=== PATIENT | female | born 1955 | race Caucasian/White ===

== ENCOUNTER 2016-12-10 09:17 | Day surgery (SDC) | payer OTHER ==
[2016-12-09 14:33] VITALS: BMI 26.9
[2016-12-10] MEDS ORDERED: PROPOFOL 20 ML ONE (09:32)
[2016-12-10 10:45] VITALS: TEMP 98
[2016-12-10 11:10] VITALS: PULSE 61
[2016-12-10 12:11] VITALS: BP 144/71
--- NOTE | 2016-12-11 12:37 | PATH ---
Surgical Pathology Report Patient Name: TABATHA GONSALES [facility]. Rec. #: [id number] /Age/Gender: 1955 (Age: 61) / F Account: [id number] Location: [facility]-ENDOSCOPY Taken: 12/10/2016 Received: 12/10/2016 Reported: 12/11/2016 Physicians: Taye Platt D.O. Specimen(s) Received A: BX DUODENUM B: BX ANTRUM Clinical History Abdominal pain, nausea, abnormal tests upper GI scan Final Diagnosis A. DUODENUM, BIOPSY: DUODENAL MUCOSA WITH NO PATHOLOGIC CHANGES. NO HISTOLOGIC EVIDENCE OF GLUTEN SENSITIVE ENTEROPATHY (CELIAC SPRUE) IDENTIFIED. B. STOMACH, ANTRUM AND BODY, BIOPSY: FOCAL MILD CHRONIC GASTRITIS. IMMUNOSTAIN FOR H. PYLORI IS NEGATIVE. Electronically Signed Grady Tapia M.D. Gross Description A. Received in formalin, labeled "biopsy duodenum" are 3 sabillon, irregular portions of soft tissue averaging 0.2 cm. in greatest dimension. The specimens are submitted in toto in one cassette. B. Received in formalin, labeled "biopsy antrum and body" are 3 sabillon, irregular portions of soft tissue averaging 0.2 cm. in greatest dimension. The specimens are submitted in toto in one cassette. 12/10/201612/10/2016
== END 2016-12-10 12:11 | disposition home or self-care (01) ==
LOC: JASU-ENDO 09:17
PROVIDERS: ATTEND Internal Medicine Gastroenterology
PROC: 0DB68ZX Excision of Stomach, Via Natural or Artificial Opening Endoscopic, Diagnostic (ICD-10-PCS; 2016-12-10)
PROC: 0DB98ZX Excision of Duodenum, Via Natural or Artificial Opening Endoscopic, Diagnostic (ICD-10-PCS; principal; 2016-12-10 10:00)
DX: K29.70 Gastritis, unspecified, without bleeding (principal)
CPT/HCPCS: 88305-TC; 88342-TC

== ENCOUNTER 2024-09-07 19:35 | Emergency (ER) | payer OTHER ==
[2024-09-07 19:52] VITALS: BP 169/79; PULSE 56; RESP 16; TEMP 97.5; BMI 30.4
[2024-09-07] MEDS ORDERED: KETOROLAC TROMETHAMINE 30 MG/1 ML VIAL ONE (20:22)
[2024-09-07] MEDS: KETOROLAC TROMETHAMINE 30 MG/1 ML VIAL IM ONE (20:27)
[2024-09-07] MEDS ORDERED: OXcarbazepine 150 MG TABLET (UD) PO SCH (22:00)
== END 2024-09-07 20:43 | disposition home or self-care (01) ==
LOC: FER 19:35
DX: H92.01 Otalgia, right ear (principal); G50.0 Trigeminal neuralgia
CPT/HCPCS: 99283-25